=== PATIENT | female | born 1980 | race Caucasian/White ===

== ENCOUNTER 2016-04-17 08:30 | Emergency (ER) | payer BC ==
[2016-04-17 09:05] VITALS: BP 103/74
--- NOTE | 2016-04-17 10:24 | UC ---
Throat Pain/Nasal Terrence HPI - HPI Summary HPI Summary: c/o sinus pressure, sore throat, ear discomfort, fatigue that started . Now with fever and body aches in the past 24 hours [ End ] - History of Current Complaint Chief Complaint: UCRespiratory Stated Complaint: SINUS,SORE THROAT,EARS,FEVER Time Seen by Provider: 04/17/16 10:13 Hx Obtained From: Patient Hx Last Menstrual Period: 04/03/16 ?: No Onset/Duration: Gradual Onset Severity: Mild Cough: Nonproductive - Epiglottits Risk Factors Epiglottis Risk Factors: Negative - Allergies/Home Medications Allergies/Adverse Reactions: Allergies Allergy/AdvReac Type Severity Reaction Status Date / Time Codeine Allergy Itching Verified 04/17/16 08:59 Home Medications: Home Medications Cough And Sinus Medication 04/17/16 [History] guaiFENesin ER TAB [Mucinex*] 600 mg PO BID PRN 04/17/16 [History Confirmed 06/28] PMH/Surg Hx/FS Hx/Imm Hx Previously Healthy: Yes Endocrine History Of: Denies: Diabetes Cardiovascular History Of: Denies: Cardiac Disorders Respiratory History Of: Denies: COPD GI/ History Of: Denies: Ulcer Cancer History Of: Denies: Lung Cancer - Surgical History Surgical History: Yes Surgery Procedure, Year, and Place: Right foot FB removed; oral wisdom teeth - Family History Known Family History: Negative: Blood Disorder - Social History Occupation: Employed Full-time Lives: With Family Alcohol Use: Occasionally Substance Use Type: None Smoking Status (MU): Former Smoker Have You Smoked in the Last Year: No When Did the Patient Quit Smoking/Using Tobacco: 2012 - Immunization History Most Recent Influenza Vaccination: not this season Review of Systems Constitutional: Fever, Chills, Fatigue Skin: Negative Eyes: Negative ENT: Sore Throat, Ear Ache, Nasal Discharge Respiratory: Negative Cardiovascular: Negative Gastrointestinal: Negative Genitourinary: Negative Motor: Negative Neurovascular: Negative Musculoskeletal: Myalgia Neurological: Negative Psychological: Negative All Other Systems Reviewed And Are Negative: Yes Physical Exam Triage Information Reviewed: Yes Appearance: Well-Appearing, No Pain Distress, Well-Nourished Vital Signs: Initial Vital Signs Temp 98.9 F 04/17/16 09:00 Pulse 88 04/17/16 09:00 Resp 18 04/17/16 09:00 BP 103/74 02/04/17 09:00 Pulse Ox 100 04/17/16 09:00 Vital Signs Reviewed: Yes Eye Exam: Normal ENT Exam: Normal ENT: Positive: Nasal congestion, Nasal drainage, Other: - frontal sinus pressure / tenderness to palpation Dental Exam: Normal Neck exam: Normal Neck: Positive: 1 Respiratory Exam: Normal Cardiovascular Exam: Normal Musculoskeletal Exam: Normal Neurological Exam: Normal Psychological Exam: Normal Skin Exam: Normal Throat Pain/Nasal Course/Dx - Course Course Of Treatment: diffuse body aches and flu like illness started 24 hours ago. discussion with patient and she wants to start tamiflu - Differential Dx/Diagnosis Differential Diagnosis/HQI/PQRI: Influenza, Sinusitis, URI Provider Diagnoses: Influenza Discharge - Discharge Plan Condition: Good Disposition: HOME Prescriptions: Oseltamivir CAP* [Tamiflu CAP*] 75 mg PO BID #10 cap Patient Education Materials: Influenza (ED) Referrals: No Primary Care Phys,NOPCP [Primary Care Provider] - 3 Days
== END 2016-04-17 10:45 | disposition home or self-care (01) ==
LOC: UCCORT 08:30
DX: J11.1 Influenza due to unidentified influenza virus with other respiratory manifestations (principal); Z87.891 Personal history of nicotine dependence
CPT/HCPCS: 99212; G0463